=== PATIENT | female | born 2000 | race Caucasian/White ===

== ENCOUNTER 2025-05-19 19:52 | Observation (INO) | payer BC, MEDICAID, SELFPAY ==
--- NOTE | ~2025-05-19 | US_ITS ---
EXAMINATION: US OB limited, 05/19/2025 19:15 AUTHOR HISTORY: VB Comparison: None Technique: Cazares-scale and color Doppler images were obtained. Findings: Single live intrauterine in longitudinal lie and vertex presentation, heart rate 124. The fetus corresponds to 36 weeks and 0 days. Placental location fundal SHUB[place]AM 11.32 DIETER 06/16/2025 The cervix appears closed, the cervix measures 3.9 cm. IMPRESSION: Single live intrauterine detailed above Reviewed, dictated and finalized at location P. OR
[2025-05-19 19:04] VITALS: BP 140/66; PULSE 89; RESP 18; TEMP 36.4; O2SAT 99
[2025-05-19 19:21] LABS: BEDSIDEPREGUCG Positive (Negative)
[2025-05-19 20:19] VITALS: BP 128/70; PULSE 96
[2025-05-19 20:30] VITALS: BP 129/72; PULSE 95
[2025-05-19 20:39] LABS: Pregnancy On Board Control Positive
[2025-05-19 20:40] LABS: Add Urine Microscopic? YES; Appearance Urine Clear (Clear); Glucose Urine UA Negative (Negative); Leukocyte Esterase Ur 1+ LEU/UL (Negative); Nitrate Urine Negative (Negative); Non Pathogenic Casts 0-2; Specific Grav Ur 1.017 (1.001-1.035)
[2025-05-19 20:45] VITALS: BP 129/63; PULSE 85
[2025-05-19 20:52] LABS: Cannabinoid Screen Urine Positive (Negative)
[2025-05-19 21:00] VITALS: BP 113/83; PULSE 91
[2025-05-19 21:08] VITALS: BMI 28.2
--- NOTE | 2025-05-19 21:08 | OBADM ---
This patient, Myra Rubio, admitted to the OB room [facility] for observation. Patient/family oriented to hospital policies and general routines including ID bracelet, bed and alarms, visiting hours, pain management, procedures, bathroom and other care routines, personal items, smoking policy, room service/diet, and visiting hours. Patient/Family are encouraged to report perceived risks to care and to ask questions if they do not understand what they are told or what they should do.
--- NOTE | 2025-06-06 09:22 | P.PNOB_ITS ---
OB - Triage/Final Diagnosis Visit Information Comments/Additional reasons for admission: I have assessed the risk for this patient, Myra Rubio, and determined that she would benefit from observation care. Evaluation Laboratory results: Laboratory Tests 05/19/25 05/19/25 05/19/25 19:19 20:15 20:28 Urine Color Yellow Urine Appearance Clear Urine pH >=9.0 H Ur Specific [place] 1.017 Urine Protein 1+ H Urine Glucose (UA) Negative Urine Ketones Negative Ur Blood (Man) 3+ H Urine Nitrate Negative Urine Bilirubin Negative Urine Urobilinogen 1.0 Leukocyte Esterase Rfl 1+ H Urine RBC 6-10 H Urine WBC 11-20 H Ur Squamous Epith Cells Few Urine Bacteria None seen Urine Casts 0-2 POC Urine HCG, Qual Positive Urine Test Positive Urine Opiates Screen Negative Urine Methadone Screen Negative Ur Barbiturates Screen Negative Ur Phencyclidine Scrn Negative Ur Amphetamine Screen Negative U Benzodiazepines Scrn Negative Urine Cocaine Screen Negative U Cannabinoids Screen Positive A Final Diagnosis (1) Spotting affecting : Code(s): O26.859 - Spotting complicating , unspecified trimester Status: Acute
== END 2025-05-19 21:20 | disposition home or self-care (01) ==
PROVIDERS: Emergency Medicine; Admitting Provider Obstetrics & Gynecology; Visit Provider Obstetrics & Gynecology
DX: O26.853 Spotting complicating pregnancy, third trimester (principal); Z3A.36 36 weeks gestation of pregnancy; R82.90 Unspecified abnormal findings in urine
CPT/HCPCS: 76815; 80307; 81001; 81025; 87086; G0378; G0379